=== PATIENT | male | born 1980 | race Caucasian/White ===

== ENCOUNTER → 2020-02-14 | Day surgery (SDC) | payer OTHER ==
--- NOTE | 2020-02-14 13:50 | RADIOLOGY REPORT (SQ) ---
EXAM DESCRIPTION: ARTHRO SHOULDER INJECTION; FLUORO/NEEDLE PLACEMENT IMAGES COMPLETED DATE/TIME: 02/14/2020 9:36 am REASON FOR STUDY: M67.812 OTHER SPECIFIED DISORDERS OF SYNOVIUM, LEFT SHOULDER M67.812 OTHER SPECIF IED DISORDERS OF SYNOVIUM, LEFT SHOULDER COMPARISON: None. FLUOROSCOPY TIME: FT: 12 seconds. 1 image saved to PACS. LIMITATIONS: None. PROCEDURE: Procedure, risks, benefits and alternatives explained to patient who then gave written co nsent. The left shoulder was marked and a time out was called for correct procedure verification. Po sterior entry site marked using fluoroscopic guidance. Shoulder prepped and draped using sterile annalise hnique. Local anesthesia achieved using 1% lidocaine injection. Hypodermic needle introduced into t he joint space under direct fluoroscopic visualization. Non-ionic contrast instilled to confirm intra -articular position. Dilute gadolinium solution then injected. Needle removed and entry site covered with sterile bandage. No immediate complications noted. TECHNIQUE: Digital images acquired during fluoroscopy and stored on PACS. Patient immediately take n to the MR suite for additional imaging. INJECTION LOCATION: Posterior left shoulder. CONTRAST TYPE AND AMOUNT: 10 mL Dotarem/Saline mixture. IMPRESSION: SUCCESSFUL NEEDLE PLACEMENT AND INJECTION FOR LEFT SHOULDER MR ARTHROGRAM USING POSTERIO R APPROACH. COMMENT: Quality ID 145: Final reports for procedures using fluoroscopy that document radiation exp osure indices, or exposure time and number of fluorographic images (if radiation exposure indices are not available) TECHNICAL DOCUMENTATION: JOB ID: [id number] 2010 [employer]- All Rights Reserved Reading location - IP/workstation name: [email or web address] [id number]
--- NOTE | 2020-02-14 13:50 | RADIOLOGY REPORT (SQ) ---
EXAM DESCRIPTION: ARTHRO SHOULDER INJECTION; FLUORO/NEEDLE PLACEMENT IMAGES COMPLETED DATE/TIME: 02/14/2020 9:36 am REASON FOR STUDY: M67.812 OTHER SPECIFIED DISORDERS OF SYNOVIUM, LEFT SHOULDER M67.812 OTHER SPECIF IED DISORDERS OF SYNOVIUM, LEFT SHOULDER COMPARISON: None. FLUOROSCOPY TIME: FT: 12 seconds. 1 image saved to PACS. LIMITATIONS: None. PROCEDURE: Procedure, risks, benefits and alternatives explained to patient who then gave written co nsent. The left shoulder was marked and a time out was called for correct procedure verification. Po sterior entry site marked using fluoroscopic guidance. Shoulder prepped and draped using sterile annalise hnique. Local anesthesia achieved using 1% lidocaine injection. Hypodermic needle introduced into t he joint space under direct fluoroscopic visualization. Non-ionic contrast instilled to confirm intra -articular position. Dilute gadolinium solution then injected. Needle removed and entry site covered with sterile bandage. No immediate complications noted. TECHNIQUE: Digital images acquired during fluoroscopy and stored on PACS. Patient immediately take n to the MR suite for additional imaging. INJECTION LOCATION: Posterior left shoulder. CONTRAST TYPE AND AMOUNT: 10 mL Dotarem/Saline mixture. IMPRESSION: SUCCESSFUL NEEDLE PLACEMENT AND INJECTION FOR LEFT SHOULDER MR ARTHROGRAM USING POSTERIO R APPROACH. COMMENT: Quality ID 145: Final reports for procedures using fluoroscopy that document radiation exp osure indices, or exposure time and number of fluorographic images (if radiation exposure indices are not available) TECHNICAL DOCUMENTATION: JOB ID: [id number] 2010 [employer]- All Rights Reserved Reading location - IP/workstation name: [email or web address] [id number]
--- NOTE | 2020-02-14 13:59 | RADIOLOGY REPORT (SQ) ---
EXAM DESCRIPTION: MRI LT UPPER JOINT WITH IMAGES COMPLETED DATE/TIME: 02/14/2020 8:50 am REASON FOR STUDY: M67.812 OTHER SPECIFIED DISORDERS OF SYNOVIUM, LEFT SHOULDER M67.812 OTHER SPECIF IED DISORDERS OF SYNOVIUM, LEFT SHOULDER M67.812 OTHER SPECIFIED DISORDERS OF SYNOVIUM, LEFT SHOULDER M67.812 OTHER SPECIFIED DISORDERS OF SY NOVIUM, LEFT SHOULDER . Left shoulder pain, decreased range of motion. Pain with flexion and exten jerry. Anterolateral pain and weakness. Unable to abduct arm. TECHNIQUE: Left shoulder images acquired and stored on PACS. Oblique coronal, oblique sagittal, and axial imaging to include fat sensitive sequences as T1, water sensitive sequences as FST2/STIR, and c ontrast sensitive sequences as FST1. LIMITATIONS: None. FINDINGS: JOINT DISTENTION: Adequate distention for interpretation. BONE MARROW AND CORTEX: Normal. No significant osteophytes. No edema or defects. AC JOINT: Normal acromioclavicular joint alignment.. No significant AC joint arthropathy. GLENOHUMERAL JOINT: No subluxation or dislocation. No focal chondral defects or reactive bone changes . ROTATOR CUFF: There is thickening and abnormal signal in the subscapularis tendon, consistent with ch ronic tendinosis. No subscapularis tear. Supraspinatus, infraspinatus, and teres minor tendons are without significant tendinopathy, partial or full-thickness tears. No peritendinitis. LABRUM AND BICEPS LABRAL COMPLEX: Normal signal in the rotator interval without tear of the superior glenohumeral ligament. Superior labrum, intra-articular long head biceps intact. Distal biceps in no rmal anatomic location in bicipital groove. No paralabral cysts. INFERIOR LABRAL COMPLEX: Bony glenoid and labrum intact. IGHL intact without thickening or tear. No p aralabral cysts. ADJACENT SOFT TISSUES: No masses or nodes. OTHER: No other significant finding. IMPRESSION: 1. No evidence of labral tear. 2. Chronic subscapularis tendinosis. No rotator cuff tear. TECHNICAL DOCUMENTATION: JOB ID: [id number] 2010 [employer]- All Rights Reserved COMPARISON: None. Reading location - IP/workstation name: [email or web address]
== END ==
LOC: RAD 08:41
PROVIDERS: ATTEND Family Medicine
DX: M67.812 Other specified disorders of synovium, left shoulder (principal)
CPT/HCPCS: 73222; 77002; 23350; A9576

== ENCOUNTER 2020-03-28 10:23 | Emergency (ER) | payer OTHER ==
--- NOTE | 2020-03-28 10:48 | ER Document Report ---
ED Medical Screen (RME) - General Chief Complaint: Back Pain Stated Complaint: BACK PAIN,LEFT ARM PAIN Time Seen by Provider: 03/28/20 10:30 Primary Care Provider: FAYE CAROLINA MD [Primary Care Provider] - Follow up as needed Mode of Arrival: Ambulatory Information source: Patient - HPI Notes: 03/28/20 10:43 39-year-old male presents to the emergency room by private car for complaints of severe left back pain that shooting to his chest, pain comes and goes and is fleeting. Reports pain is severe. Reports that he started yesterday with left arm numbness. Patient states he has a history of chronic back pain and states that this is "feels entirely different". Patient is a non-smoker, is not blood thinners. Denies mom or dad having any cardiac history of MIs, hypertension or strokes. Pain lasts only a few seconds. 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 Reports that he does have a bulging disc at his T4-T5, was not sure if it was this but states that this pain is entirely different than his chronic back pain. Denies any fevers or chills, patient states that he had :chest pain once that shot through me" morning, denies any shortness of breath, vomiting or diarrhea. States he did have one bout of nausea but does not feel it anymore. I have greeted and performed a rapid initial assessment of this patient. A comprehensive ED assessment and evaluation of the patient, analysis of test results and completion of the medical decision making process will be conducted by additional ED providers. PHYSICAL EXAMINATION: GENERAL: Well-appearing, well-nourished and in mild distress CV: tachycardia LUNGS: No respiratory distress Musculoskeletal: Normal range of motion NEUROLOGICAL: Normal speech, normal gait. SKIN: Warm, Dry, normal turgor, no rashes or lesions noted. Physical Exam - Vital signs Vitals: Temp Pulse Resp BP Pulse Ox 98.2 F 111 H 20 164/84 H 100 03/28/20 10:28 03/28/20 10:28 03/28/20 10:28 03/28/20 10:03/28/20 10:28 Course - Vital Signs Vital signs: Temp Pulse Resp BP Pulse Ox 98.2 F 111 H 20 164/84 H 100 03/28/20 10:28 03/28/20 10:28 03/28/20 10:28 03/28/20 10:28 03/28/20 10:28 Doctor's Discharge - Discharge Referrals: FAYE CAROLINA MD [Primary Care Provider] - Follow up as needed
[2020-03-28 11:11] LABS: ABSOLUTE EOSINOPHILS # (AUTO) 0.1 10^3/uL (0.0-0.6); ABSOLUTE LYMPHOCYTES (AUTO) 1.4 10^3/uL (0.5-4.7); ABSOLUTE MONOCYTES (AUTO) 0.5 10^3/uL (0.1-1.4); ABSOLUTE NEUT (AUTO) 2.6 10^3/uL (1.7-8.2); BASOPHILS % (AUTO) 0.8 % (0-2); EOSINOPHILS % (AUTO) 1.4 % (0-6); HEMATOCRIT 48.3 % (37.9-51.0); HEMOGLOBIN 16.8 g/dL (13.5-17.0); LYMPHOCYTES % (AUTO) 30.2 % (13-45); MEAN CORPUSCULAR HEMOGLOBIN 31.8 pg (27.0-33.4); MEAN CORPUSCULAR HGB CONC 34.8 g/dL (32.0-36.0); MEAN CORPUSCULAR VOLUME 91 fl (80-97); MONOCYTES % (AUTO) 11.4 % (3-13); PLATELET COUNT 187 10^3/uL (150-450); RED BLOOD COUNT 5.29 10^6/uL (4.35-5.55); RED CELL DISTRIBUTION WIDTH 13.7 % (11.5-14.0); SEGMENTED NEUTROPHILS % (AUTO) 56.2 % (42-78); TOTAL CELLS COUNTED % (AUTO) 100 %; WHITE BLOOD COUNT 4.6 10^3/uL (4.0-10.5)
--- NOTE | 2020-03-28 11:16 | RADIOLOGY REPORT (SQ) ---
EXAM DESCRIPTION: CHEST 2 VIEWS IMAGES COMPLETED DATE/TIME: 03/28/2020 11:04 am REASON FOR STUDY: left upper back pain that radiates to left chest COMPARISON: 09/20/2007. EXAM PARAMETERS: NUMBER OF VIEWS: two views TECHNIQUE: Digital Frontal and Lateral radiographic views of the chest acquired. RADIATION DOSE: NA LIMITATIONS: none FINDINGS: LUNGS AND PLEURA: No opacities, masses or pneumothorax. No pleural effusion. MEDIASTINUM AND HILAR STRUCTURES: No masses or contour abnormalities. HEART AND VASCULAR STRUCTURES: Heart normal size. No evidence for failure. BONES: No acute findings. HARDWARE: None in the chest. OTHER: No other significant finding. IMPRESSION: NO ACUTE RADIOGRAPHIC FINDING IN THE CHEST. TECHNICAL DOCUMENTATION: JOB ID: [id number] 2010 [employer]- All Rights Reserved Reading location - IP/workstation name: [email or web address]
[2020-03-28 11:20] LABS: APPEARANCE,URINE CLEAR; BILIRUBIN,URINE NEGATIVE (NEGATIVE); COLOR,URINE YELLOW; GLUCOSE, URINE NEGATIVE (NEGATIVE); KETONES,URINE NEGATIVE (NEGATIVE); LEUKOCYTE ESTERASE,URINE NEGATIVE (NEGATIVE); NITRITE,URINE NEGATIVE (NEGATIVE); PROTEIN,URINE NEGATIVE (NEGATIVE); UROBILINOGEN,URINE NEGATIVE mg/dL (<2.0)
[2020-03-28 11:31] LABS: ALBUMIN 4.8 g/dL (3.5-5.0); ALKALINE PHOSPHATASE 51 U/L (38-126); ANION GAP 10 (5-19); ASPARTATE AMINO TRANSFERASE 23 U/L (17-59); BILIRUBIN,TOTAL 1.6 mg/dL (0.2-1.3); BLOOD UREA NITROGEN 19 mg/dL (7-20); CALCIUM 9.7 mg/dL (8.4-10.2); CARBON DIOXIDE 25 mmol/L (22-30); CHLORIDE 101 mmol/L (98-107); CREATINE KINASE 85 U/L (55-170); GLUCOSE 110 mg/dL (75-110); TOTAL PROTEIN 7.5 g/dL (6.3-8.2)
[2020-03-28] MEDS ORDERED: MORPHINE SULFATE 10 MG/ML INJ IV ONE ×2 (11:33→13:42)
[2020-03-28] MEDS ORDERED: ONDANSETRON HCL INJ/PF 4 MG/2 ML SDV IV ONE (11:33)
--- NOTE | 2020-03-28 12:15 | RADIOLOGY REPORT (SQ) ---
EXAM DESCRIPTION: CTA CHEST IMAGES COMPLETED DATE/TIME: 03/28/2020 11:52 am REASON FOR STUDY: shooting back pain to center of chest, sudden onse COMPARISON: None. TECHNIQUE: CT scan of the chest performed using helical scanning technique with dynamic intravenous contrast injection. Images reviewed with lung, soft tissue and bone windows. Reconstructed coronal and sagittal MPR images reviewed. Additional 3 dimensional post-processing performed to develop Maximal Intensity Projection images ([place] P). All images stored on PACS. All CT scanners at this facility use dose modulation, iterative reconstruction, and/or weight based d osing when appropriate to reduce radiation dose to as low as reasonably achievable (ALARA). [facility]: Dose Right [facility]: CareDose [facility]: Dose Right [facility]: Teradose 4D [facility]: [employer] CONTRAST TYPE AND DOSE: contrast/concentration: Isovue 350.00 mmol/ml; Total Contrast Delivered: 58. 0 ml; Total Saline Delivered: 60.0 ml Contrast bolus adequate for pulmonary arteries and aorta. RENAL FUNCTION: None required. The patient is less than 50 years old. RADIATION DOSE: CT Rad equipment meets quality standard of care and radiation dose reduction techniq ues were employed. CTDIvol: 6.6 - 15.7 mGy. DLP: 639 mGy-cm. . LIMITATIONS: None. FINDINGS: LUNGS AND PLEURA: 4.7 mm subpleural nodule in the anterior right middle lobe (axial series 4, image 86). 2.7 mm nodule in the anterior left upper lobe (axial series 4, image 49). 3.3 mm sub pleural nodule in the anterior left upper lobe (axial series 4, image 75). No masses, infiltrates, o r pneumothorax. No pleural effusions or pleural calcifications. AORTA AND GREAT VESSELS: No aneurysm. Contrast bolus not optimized for the aorta. HEART: No pericardial effusion. No significant coronary artery calcifications. PULMONARY ARTERIES: No emboli visualized in the main pulmonary arteries or the segmental branches. HILAR AND MEDIASTINAL STRUCTURES: No identified masses or abnormal nodes. HARDWARE: None in the chest. UPPER ABDOMEN: No significant findings. Limited exam. THYROID AND OTHER SOFT TISSUES: No masses. No adenopathy. BONES: No acute or significant finding. 3D MIPS: Confirm above findings. OTHER: No other significant finding. IMPRESSION: 1. NORMAL CTA OF THE CHEST. NO PULMONARY EMBOLI. 2. SMALL PULMONARY NODULES DESCRIBED, LESS THAN 5 MM. MAY CONSIDER FOLLOW-UP BASED ON FLEISCHNER CRITERIA. COMMENT: FLEISCHNER CRITERIA FOR FOLLOW-UP OF PULMONARY NODULES Incidentally detected new nodules in persons 35 or older. HIGH RISK: History of smoking or other known risk factors. <6 mm multiple solid nodules: LOW RISK: no routine followup. HIGH RISK: optional CT 12 mo. Quality ID # 436: Final reports with documentation of one or more dose reduction techniques (e.g., Au tomated exposure control, adjustment of the mA and/or kV according to patient size, use of iterative reconstruction technique) TECHNICAL DOCUMENTATION: JOB ID: [id number] 2010 [employer]- All Rights Reserved Reading location - IP/workstation name: [email or web address]
--- NOTE | 2020-03-28 14:31 | RADIOLOGY REPORT (SQ) ---
EXAM DESCRIPTION: U/S ABDOMEN LIMITED W/O DOP IMAGES COMPLETED DATE/TIME: 03/28/2020 2:22 pm REASON FOR STUDY: ruq pain COMPARISON: None. TECHNIQUE: Dynamic and static grayscale images acquired of the abdomen and recorded on PACS. Additio kira selected color Doppler and spectral images recorded. LIMITATIONS: None. FINDINGS: PANCREAS: No masses. Visualized pancreatic duct normal caliber. LIVER: No masses. Echotexture normal. LIVER VASCULATURE: Normal directional flow of the main portal vein and hepatic veins. GALLBLADDER: No stones. Normal wall thickness. No pericholecystic fluid. ULTRASOUND-DETECTED BURROWS'S SIGN: Negative. INTRAHEPATIC DUCTS AND COMMON DUCT: CBD and intrahepatic ducts normal caliber. No filling defects. AORTA: No aneurysm. RIGHT KIDNEY: Normal size, 10 cm. Normal echogenicity. No solid or suspicious masses. No hydronephro sis. No calcifications. PERITONEAL AND RIGHT PLEURAL SPACE: No ascites or effusions. OTHER: No other significant findings. IMPRESSION: NORMAL RIGHT UPPER QUADRANT ULTRASOUND. TECHNICAL DOCUMENTATION: JOB ID: [id number] 2010 [employer]- All Rights Reserved Reading location - IP/workstation name: [email or web address]
--- NOTE | 2020-03-28 15:01 | ER Document Report ---
ED Cardiac - General Chief Complaint: Chest Pain Stated Complaint: BACK PAIN,LEFT ARM PAIN Time Seen by Provider: 03/28/20 10:30 Primary Care Provider: FAYE CAROLINA MD [EMERITUS] - Follow up as needed Mode of Arrival: Ambulatory Information source: Patient - [facility] Notes: Patient presents with left upper back pain that radiates through into the chest. He states he has some numbness of the left arm with it. He states that this seemed to start yesterday. He states it starts in the back and radiates to the chest. Nothing makes it better or worse. It seems to come in waves. It is moderate to severe. It is sharp. No significant shortness of breath. Some mild nausea but no vomiting or diarrhea. No cough cold or congestion. No fevers. He states he was lifting some heavy object several days ago. - Related Data Allergies/Adverse Reactions: No Known Allergies Allergy (Unverified 03/28/20 11:35) Past Medical History - General Information source: Patient - Social History Smoking Status: Never Smoker Chew tobacco use (# tins/day): No Drug Abuse: None Family History: Reviewed & Not Pertinent Patient has homicidal ideation: No Review of Systems - Review of Systems Constitutional: denies: Chills, Fever Cardiovascular: Chest pain. denies: Palpitations Respiratory: Short of breath. denies: Cough -: Yes All other systems reviewed and negative Physical Exam - Vital signs Vitals: Temp Pulse Resp BP Pulse Ox 98.2 F 111 H 20 164/84 H 100 03/28/20 10:28 03/28/20 10:28 03/28/20 10:28 03/28/20 10:28 03/28/20 10:28 Interpretation: Tachycardic - General General appearance: Appears well, Alert - HEENT Head: Normocephalic, Atraumatic Eyes: Normal Pupils: PERRL - Respiratory Respiratory status: No respiratory distress Chest status: Nontender Breath sounds: Normal Chest palpation: Normal - Cardiovascular Rhythm: Regular - Patient was tachycardic at triage but has a heart rate of 82 on my exam. Heart sounds: Normal auscultation Murmur: No - Abdominal Inspection: Normal Distension: No distension Bowel sounds: Normal Tenderness: Nontender Organomegaly: No organomegaly - Back Back: Normal, Nontender - Extremities General upper extremity: Normal inspection, Nontender, Normal color, Normal ROM, Normal temperature General lower extremity: Normal inspection, Nontender, Normal color, Normal ROM, Normal temperature, Normal weight bearing. No: Nimco's sign - Neurological Neuro grossly intact: Yes Cognition: Normal Orientation: AAOx4 Kalli Coma Scale Eye Opening: Spontaneous Kalli Coma Scale Verbal: Oriented Kalli Coma Scale Motor: Obeys Commands Kalli Coma Scale Total: 15 Speech: Normal Motor strength normal: LUE, RUE, LLE, RLE Sensory: Normal - Psychological Associated symptoms: Normal affect, Normal mood - Skin Skin Temperature: Warm Skin Moisture: Dry Skin Color: Normal Course - Re-evaluation Re-evalutation: 03/28/20 15:06 Patient presents with sharp left upper back pain that radiates through to his chest. For PE and CTA was normal. No evidence for aortic pathology. I have done 2 EKGs and a troponin without evidence of cardiac pathology. I do not see any evidence of GI or esophageal pathology. It seems that this may be a musculoskeletal issue. I have given the patient several doses of pain medication. He did have a mildly elevated bilirubin so I did a right upper quadrant ultrasound but no evidence of any type of gallbladder or liver pathology. - Vital Signs Vital signs: Temp Pulse Resp BP Pulse Ox 98.2 F 111 H 11 L 136/82 H 100 03/28/20 10:28 03/28/20 10:28 03/28/20 12:01 03/28/20 12:01 03/28/20 12:01 - Laboratory Result Diagrams: 03/28/20 10:50 03/28/20 10:50 Laboratory results interpreted by me: 03/28/20 10:50 Sodium 135.6 L Total Bilirubin 1.6 H - Diagnostic Test Radiology reviewed: Image reviewed, Reports reviewed - EKG Interpretation by Md EKG shows normal: Sinus rhythm Rate: Normal - 100 Rhythm: NSR [place]/QRS: Right axis deviation Additional EKG results interpreted by nj: 03/28/20 15:05 A second EKG was performed at approximately 1331. This EKG shows a normal sinus rhythm. The rate was 70. There is no significant evidence of a right or left axis deviation. The rate was regular. Discharge - Discharge Clinical Impression: Upper back pain on left side Condition: Stable Disposition: HOME, SELF-CARE Instructions: Chest Pain of Unclear Cause ([facility]) Additional Instructions: Please call your primary care physician as soon as possible to arrange follow-up in the next 24 to 48 hours Prescriptions: Tramadol HCl [Ultram] 50 mg PO Q6 PRN 3 Days #12 tablet PRN Reason: Forms: Return to Work Referrals: FAYE CAROLINA MD [EMERITUS] - Follow up tomorrow
[2020-03-28 15:39] VITALS: BP 131/77
--- NOTE | 2020-03-29 09:27 | EKG REPORT ---
SEVERITY:- BORDERLINE ECG - SINUS RHYTHM PROBABLE LEFT ATRIAL ABNORMALITY : Confirmed by: Fuad Hicks 29-Mar-2020 09:25:23
--- NOTE | 2020-03-29 09:27 | EKG REPORT ---
SEVERITY:- BORDERLINE ECG - SINUS TACHYCARDIA PROBABLE LEFT ATRIAL ABNORMALITY BORDERLINE RIGHT AXIS DEVIATION : Confirmed by: Fuad Hicks 29-Mar-2020 09:25:31
== END 2020-03-28 15:39 | disposition home or self-care (01) ==
LOC: ER 10:23
DX: R07.9 Chest pain, unspecified (principal); M54.9 Dorsalgia, unspecified; M79.602 Pain in left arm; M54.6 Pain in thoracic spine; R20.0 Anesthesia of skin; X50.0XXA Overexertion from strenuous movement or load, initial encounter
CPT/HCPCS: 93005; 96376; 99285; 96374; 96375; 36415; 82550; 83690; 84443; 85025; 80053; 81001; 84484; 71046; 76705; 71275; 93010; J2270; J2405